=== PATIENT | female | born 1995 | race Caucasian/White ===

== ENCOUNTER 2024-03-15 23:00 | Emergency (ER) | payer BC, SELFPAY ==
[2024-03-15 23:02] VITALS: BP 120/70
[2024-03-15 23:24] LABS: % Basophils 0.3 % (0-2); % Eosinophils 0.8 % (0-6); % Immature Granulocytes 0.3 % (0-0.5); % Lymphocytes 34.6 % (20.5-51.1); % Monocytes 7.5 % (1.7-9.3); % Neutrophils 56.5 % (42.2-75.2); Absolute Eosinophils 0.1 10^3/uL (0-0.7); Absolute Lymphocytes 2.3 10^3/uL (1.2-3.4); Absolute Monocytes 0.5 10^3/uL (0.1-0.6); Absolute Neutrophils 3.7 10^3/uL (1.4-6.5); Hematocrit 29.5 % (37.0-47.0); Hemoglobin 10.7 g/dL (12.0-16.0); Mean Corp Hgb Conc. 36.3 g/dL (33.0-37.0); Mean Corpuscular Hgb 30.3 pg (27.0-31.0); Mean Corpuscular Volume 83.6 fL (81.0-99.0); Mean Platelet Volume 10.5 fL (7.4-10.4); Nucleated Red Blood Cells % 0 %; Platelet Count 270 10^3/uL (130-400); Red Blood Cell Count 3.53 10^6/uL (4.20-5.40); Red Cell Dist. Width 12.1 % (11.5-14.5); White Blood Cell Count 6.5 10^3/uL (4.8-10.8)
[2024-03-15 23:47] LABS: ALT (SGPT) 11 U/L (0-35); AST (SGOT) 23 U/L (14-36); Albumin 3.6 g/dl (3.5-5.0); Alkaline Phosphatase 115 U/L (38-126); Blood Urea Nitrogen 7 mg/dl (7-17); Carbon Dioxide 21 mmol/L (22-30); Chloride 104 mmol/L (98-107); Glucose 95 mg/dl (70-99); Sodium 133 mmol/L (135-145); Total Bilirubin 0.3 mg/dl (0.2-1.3); Total Protein 6.1 g/dl (6.3-8.2); eGFR > 60.00
[2024-03-15 23:52] LABS: Troponin I < 0.012 ng/ml
[2024-03-16 00:31] VITALS: BP 108/79
--- NOTE | 2024-03-16 00:41 | ED.GENMED ---
History of Present Illness
<DEE Moreno (Lenka) - Last Filed: 03/16/24 03:58>
General
Chief Complaint: Chest Pain
Source: patient
Exam Limitations: none
Time Seen by Provider: 03/16/24 00:25
Nursing documentation reviewed up to this point in time: agreed with
History of Present Illness
History of Present Illness:
Pt is a 28 yo female at 36w5d gestation with PMHx of anxiety presenting with sternal chest pressure since this evening. After eating pasta with red sauce and onions pt developed new onset moderate chest tightness and pressure which lasted at
moderate intensity x 1 hour. Worse with bending forward and deep breathing. She called her OB (Kita) after 1 hour, who recommended 2 Tums and 2 Tylenol, and if no relief of sx, to come to the ED. She reports the symptoms are mild now, but she
still experiences the pressure with bending forward. She has had reflux in the past, but does not present this way and is managed with Tums. No fever, chills, N/V, lightheadedness. No abdominal pain, back or flank pain, no vaginal discharge or
bleeding, dysuria, contractions.
FHT: 156
Gestational age (Saturday, 03/16): 36w5d
KATYA: 04/08/2024
Phy Exam
<DEE Moreno (Lenka) - Last Filed: 03/16/24 03:58>
General Physical Exam
General Presentation: well appearing and no apparent distress
General age: appears stated age
General Skin: warm and dry
General Habitus: normal and other ()
General Mental: alert
General Hydration: appears well hydrated
ENT Exam
ENT Exam: EOMI and normocephalic
Eye Exam
Eye Exam: conjunctiva normal
Cardiovascular Exam
Cardiovascular Exam: regular rate/rhythm, no edema, no gallop, no murmur and normal peripheral pulses
Pulmonary Exam
Pulmonary Exam: lungs clear, no respiratory distress, no rales and no rhonchi
Gastrointestinal Exam
Gastrointestinal Exam: non tender and other (36w5d )
Neurological Exam
Neurological Exam: alert and oriented x3
Musculoskeletal Exam
Musculoskeletal Exam: full ROM
Skin Exam
Skin Exam: normal color and warm/dry
Scores
<ST Moreno (Lenka)MO - Last Filed: 03/16/24 03:58>
Heart Score for Chest Pain Patients
STEMI patient?: No
History: Slightly or Non-Suspicious
ECG: Normal
Age: </= 45 years
Risk Factors: No Risk Factors
Troponin: </= Normal Limit
Heart Score for Chest Pain Patients: 0
Heart Score Risk: 2.5% MACE over next 6 weeks
Course
<Kasie Garcia (Lenka) [facility] - Last Filed: 03/16/24 03:58>
Orders/Labs/Results
Orders:
Orders
03/15/24 23:07
Electrocardiogram (*1) Urgent
Reason for Study: Chest Pain
EKG- Treatment ONCE
03/15/24 23:18
CMP [Comprehensive Metabolic Panel] Urgent
Complete Blood Count/With Diff Urgent
Troponin I Urgent
Abnormal Lab Results
03/15/24
23:18
RBC 3.53 L 10^6/uL
(4.20-5.40)
Hgb 10.7 L g/dL
(12.0-16.0)
Hct 29.5 L %
(37.0-47.0)
MPV 10.5 H fL
(7.4-10.4)
Sodium 133 L mmol/L
(135-145)
Carbon Dioxide 21 L mmol/L
(22-30)
Total Protein 6.1 L g/dl
(6.3-8.2)
03/15/24 23:18
03/15/24 23:18
Vital Signs
Initial and Last Documented VS:
Initial Vital Signs
Temp Pulse Resp BP Pulse Ox
98 F 64 22 120/70 98
03/15/24 23:02 03/15/24 23:02 03/15/24 23:02 03/15/24 23:02 03/15/24 23:02
Last Documented Vital Signs
Temp Pulse Resp BP Pulse Ox
98 F 56 14 104/82 95
03/15/24 23:02 03/16/24 01:15 03/16/24 01:30 03/16/24 01:00 03/16/24 01:30
<Warren Esposito, - Last Filed: 03/16/24 01:44>
Orders/Labs/Results
Orders:
Orders
03/15/24 23:07
Electrocardiogram (*1) Urgent
Reason for Study: Chest Pain
EKG- Treatment ONCE
03/15/24 23:18
CMP [Comprehensive Metabolic Panel] Urgent
Complete Blood Count/With Diff Urgent
Troponin I Urgent
Abnormal Lab Results
03/15/24
23:18
RBC 3.53 L 10^6/uL
(4.20-5.40)
Hgb 10.7 L g/dL
(12.0-16.0)
Hct 29.5 L %
(37.0-47.0)
MPV 10.5 H fL
(7.4-10.4)
Sodium 133 L mmol/L
(135-145)
Carbon Dioxide 21 L mmol/L
(22-30)
Total Protein 6.1 L g/dl
(6.3-8.2)
03/15/24 23:18
03/15/24 23:18
Vital Signs
Initial and Last Documented VS:
Initial Vital Signs
Temp Pulse Resp BP Pulse Ox
98 F 64 22 120/70 98
03/15/24 23:02 03/15/24 23:02 03/15/24 23:02 03/15/24 23:02 03/15/24 23:02
Last Documented Vital Signs
Temp Pulse Resp BP Pulse Ox
98 F 56 14 104/82 95
03/15/24 23:02 03/16/24 01:15 03/16/24 01:30 03/16/24 01:00 03/16/24 01:30
<DEE Moreno (Lenka) - Last Filed: 03/16/24 03:58>
MDM/Problems Addressed
Differential Diagnosis Includes:
Pt with history of GERD, EKG unremarkable with sinus bradycardia. Some improvement after taking 2 Tums. Will consult OB.
<DEE Moreno (Lenka) - Last Filed: 03/16/24 03:58>
*Critical Care Note
Total Time (30-74mins, 75-104mins- exclusive of procedures): Not Applicable
<Warren Esposito DO - Last Filed: 03/16/24 01:44>
*EKG
Interpreted by ED Provider?: Yes
EKG Intrepretation Date: 03/16/24
Interpretation: normal
Comparison EKG: no comparison EKG present
Heart Rate: 53
Rate: bradycardiac
Rhythm: sinus
Gilbert: normal axis
Interval: normal interval
QRS Pattern: normal QRS
Ischemia: no ischemia
*Critical Care Note
Total Time (30-74mins, 75-104mins- exclusive of procedures): Not Applicable
ED Attending Note
<DEE Moreno (Lenka) - Last Filed: 03/16/24 03:58>
-
Portions of this chart may have been created with voice recognition software.� Occasional wrong word or��sound alike� substitutions may have occurred due to the inherent limitations of voice recognition software.
<Warren Esposito DO - Last Filed: 03/16/24 01:44>
ED Attending Note
Patient seen and examined by attending physician: Yes
I performed the substantive portion of visit, reviewed & personally made and approve the management plan that is documented in note by myself or EVY.: Yes
ED Attending Note:
28-year-old female 36 weeks had mid chest pain after dinner tonight. She had pasta with red sauce and onions. She typically has GERD. She took Tums with some relief. Troponin negative. EKG negative. No shortness of breath. This is
likely GERD. She is not having any obstetrical symptoms. Her CHILD SUPPORT INVESTIGATOR is located at [facility]. Patient was seen in conjunction with the PA student. I have reviewed and agree with the history and treatment plan presented. On my independent
physical exam, patient is awake, alert, and oriented x3. heart is regular rate and rhythm. Lungs are clear to auscultation bilaterally no wheezes rales or rhonchi present. She is in no respiratory distress. Abdomen is gravid appearing. Moves all
4 extremities. Skin is warm and dry. She is resting comfortably.
She has a PA at [facility].
Did discuss signs and symptoms for PE. D-dimer would likely be elevated due to her . CT scan or VQ scan would be the only options to rule out PE. I feel that it is unlikely given that she is bradycardic, having no respiratory distress,
chest pain resolved with Tums. Through shared decision making, no CT scan will be performed at this time.
Discussed with CHILD SUPPORT INVESTIGATOR at [facility]. Patient to be discharged home after NST on the labor and delivery floor..
Discharge Plan
Departure
Patient Disposition: LDRP
Date of Disposition: 03/16/24
Time of Disposition: 01:40
Presentation/result/management discussed w/ accepting MD/DO: Dr. Kim
Patient with high blood pressure during this ER visit?: Yes
Condition: Good
Discharge Problem:
Chest pain
Instructions: Chest Pain PCP Follow Up
Prescriptions:
No Action
sertraline 50 mg Tablet
50 mg PO DAILY
Referrals:
Ning Florez DO [Family Provider] -
Activity Restrictions/Additional Instructions:
It was a pleasure meeting you and taking part in your care. We hope for your continued healing and wellness.
Please read discharge instructions in their entirety. However, they are for general education and may not describe your exact diagnosis at discharge. Information on your ER visit and medical conditions were discussed with you along with appropriate
follow up information...
If indicated, please take your medications as instructed and indicated on discharge paperwork.
Please schedule a follow up appointment as directed. Call to schedule an appointment
Please return to the emergency department with ANY change in, persisting, or worsening of symptoms. If any of your symptoms do not improve, or persist, or become more severe within 6-12 hours, please return to the emergency department for further
care.
Please return to the emergency department if you develop a headache, neck pain/stiffness, fever greater than 100.4F, chest pain, shortness of breath, persistent nausea, vomiting, slurred speech, difficulty walking, numbness/tingling, weakness, signs
of infection or any other symptoms that are worrisome to you.
If you have any questions or concerns please do not hesitate to call the Hospital at or E-mail me directly at [email or web address]
Interventions
Interventions:
*Risk Screen - Suicide Last Done: 03/15/24 23:02
*General Assessment Last Done: 03/16/24 01:46
*Neglect/Abuse Screening Last Done: 03/15/24 23:02
ED- Fall Risk Assessment Last Done: 03/16/24 01:46
*ED COVID-19 Vaccine History Last Done: 03/16/24 01:46
*Nursing Disposition Last Done: 03/16/24 01:46
ED- Cardiac Assessment Last Done: 03/16/24 01:45
Discharge Date and Time
Discharge Date/Time: 03/16/24 01:47
Print Language: MAURITANIAN
[2024-03-16 01:00] VITALS: BP 104/82
== END 2024-03-16 01:47 ==
LOC: EMR 23:00
PROVIDERS: EMERGENCY PHYSICIAN Student in an Organized Health Care Education/Training Program; FAMILY PHYSICIAN Family Medicine
DX: O26.893 Other specified pregnancy related conditions, third trimester (principal); R07.2 Precordial pain; Z3A.36 36 weeks gestation of pregnancy
CPT/HCPCS: 99284; 80053; 84484; 85025; 93005

== ENCOUNTER 2024-03-16 01:53 | Observation (INO) | payer BC, SELFPAY ==
[2024-03-16 02:00] VITALS: BP 106/74; BMI 28.7
== END 2024-03-16 02:44 | disposition home or self-care (01) ==
LOC: LDRP 01:53
PROVIDERS: ADMITTING PHYSICIAN Obstetrics & Gynecology
DX: R07.9 Chest pain, unspecified (principal); K21.9 Gastro-esophageal reflux disease without esophagitis; Z3A.36 36 weeks gestation of pregnancy
CPT/HCPCS: 59025; G0378

== ENCOUNTER → 2024-09-30 12:24 | Outpatient (REF) | payer BC, SELFPAY | LOC: RAD 12:24 | PROVIDERS: ATTENDING PHYSICIAN Internal Medicine Rheumatology; FAMILY PHYSICIAN Family Medicine | DX: R93.89 Abnormal findings on diagnostic imaging of other specified body structures (principal) | CPT/HCPCS: 72040 ==